=== PATIENT | female | born 1995 | race Caucasian/White ===

== ENCOUNTER 2020-05-02 11:01 | Emergency (ER) | payer SELFPAY ==
[2020-05-02 11:07] VITALS: BP 138/83
[2020-05-02] MEDS ORDERED: NORMAL SALINE 1000 ML 1,000 ML IV ONE (12:27)
[2020-05-02 12:58] LABS: AMORPHOUS SEDIMENT,URINE TRACE /HPF; APPEARANCE,URINE SLIGHTLY-CLOUDY; BILIRUBIN,URINE NEGATIVE (NEGATIVE); COLOR,URINE YELLOW; GLUCOSE, URINE NEGATIVE (NEGATIVE); KETONES,URINE NEGATIVE (NEGATIVE); LEUKOCYTE ESTERASE,URINE NEGATIVE (NEGATIVE); NITRITE,URINE NEGATIVE (NEGATIVE); PROTEIN,URINE NEGATIVE (NEGATIVE); URINE SPECIFIC GRAVITY 1.026; UROBILINOGEN,URINE NEGATIVE mg/dL (<2.0)
[2020-05-02 13:23] LABS: URINE BARBITURATES SCREEN NEGATIVE; URINE BENZODIAZEPINES SCREEN NEGATIVE; URINE COCAINE SCREEN NEGATIVE; URINE MARIJUANA (THC) SCREEN NEGATIVE; URINE METHADONE SCREEN NEGATIVE; URINE PHENCYCLIDINE SCREEN NEGATIVE
[2020-05-02] MEDS ORDERED: ONDANSETRON 4 MG TAB.RAPDIS PO ONE (13:35)
[2020-05-02] MEDS ORDERED: CEFTRIAXONE INJ 250 MG VIAL IM ONE (13:36)
[2020-05-02] MEDS ORDERED: AZITHROMYCIN 250 MG TABLET PO ONE (13:36)
[2020-05-02] MEDS ORDERED: LIDOCAINE 1% INJ-PF (10 MG/ML) 30 ML SDV IM ONE (13:36)
--- NOTE | 2020-05-02 14:09 | ER Document Report ---
ED GI/ - General Chief Complaint: STD Exposure Stated Complaint: NAUSEA,VOMITING Time Seen by Provider: 05/02/20 13:09 Primary Care Provider: WINDY OWUSU MD [ACTIVE STAFF] - Follow up as needed Mode of Arrival: Ambulatory Information source: Patient Notes: 25-year-old female past medical history significant for asthma and a heart murmur presents to the emergency room complaining of urinary urgency general fatigue and a thick white discharge for the past several weeks. 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 She states her and her boyfriend were both diagnosed with nongonococcal urethritis about 6 weeks ago. States she was prescribed medications that she never took. States partner took his medications but is still symptomatic. She denies any other change in partners. TRAVEL OUTSIDE OF THE [place] IN LAST 30 DAYS: No - Related Data Allergies/Adverse Reactions: egg Adverse Reaction (Verified 05/02/20 12:38) Home Medications: control shot Past Medical History - General Information source: Patient - Social History Smoking Status: Never Smoker Frequency of alcohol use: None Drug Abuse: Heroin, Marijuana, Methamphetamine Family History: Reviewed & Not Pertinent Patient has homicidal ideation: No Review of Systems - Review of Systems Constitutional: Malaise Cardiovascular: No symptoms reported Respiratory: No symptoms reported Gastrointestinal: Nausea. denies: Abdominal pain, Diarrhea, Vomiting Genitourinary: Urgency Female Genitourinary: Vaginal discharge Musculoskeletal: No symptoms reported Skin: No symptoms reported Neurological/Psychological: No symptoms reported -: Yes All other systems reviewed and negative Physical Exam - Vital signs Vitals: Temp Pulse Resp BP Pulse Ox 98.0 F 98 14 138/83 H 99 05/02/20 11:06 05/02/20 11:06 05/02/20 11:06 05/02/20 11:06 05/02/20 11:06 - General General appearance: Appears well, Alert In distress: Mild - HEENT Head: Normocephalic, Atraumatic Eyes: Normal Pupils: PERRL - Respiratory Respiratory status: No respiratory distress Chest status: Nontender Breath sounds: Normal Chest palpation: Normal - Cardiovascular Rhythm: Regular Heart sounds: Normal auscultation Murmur: No - Abdominal Inspection: Normal Distension: No distension Bowel sounds: Normal Tenderness: Nontender Organomegaly: No organomegaly - Genitourinary External exam: Normal Speculum exam: Vaginal discharge - Thick white discharge noted. Cervix was closed nonfriable.. No: Cervix closed Vaginal bleeding: None Bimanuel exam: Normal. 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 No: CVA tenderness - Neurological Neuro grossly intact: Yes Cognition: Normal Orientation: AAOx4 [place] Coma Scale Eye Opening: Spontaneous Ginger Coma Scale Verbal: Oriented [place] Coma Scale Motor: Obeys Commands Ginger Coma Scale Total: 15 Speech: Normal Motor strength normal: LUE, RUE, LLE, RLE Sensory: Normal - Skin Skin Temperature: Warm Skin Moisture: Dry Skin Color: Normal Course - Re-evaluation Re-evalutation: 05/02/20 14:24 Patient is resting comfortably no acute distress at this time. She is able to tolerate p.o. fluids. Reviewed urinalysis and wet prep results with patient. Counseled on need to take Flagyl as prescribed. No drinking alcohol while taking the Flagyl for 24 hours after completing. She is aware she will be notified if her gonorrhea and/or chlamydia test are positive patient requested to be treated while waiting for her test results. Recommend an outpatient follow-up with a primary care physician if symptoms are persistent. On-call physician was provided. Take Zofran as needed for nausea. Patient was given strict return to the emergency room guidelines. Return for any new or worsening symptoms. All questions were answered. Patient verbalized understanding and agrees with plan of care. - Vital Signs Vital signs: Temp Pulse Resp BP Pulse Ox 98.0 F 98 14 138/83 H 99 05/02/20 11:06 05/02/20 11:06 05/02/20 11:06 05/02/20 11:06 05/02/20 11:06 Discharge - Discharge Clinical Impression: Nausea, Dysuria, Vaginal discharge, Bacterial vaginosis Condition: Stable Disposition: HOME, SELF-CARE Instructions: Nausea or Vomiting, Nonspecific ([facility]), Vaginosis, Bacterial ([facility]) Additional Instructions: Take Flagyl as prescribed no drinking alcohol while taking Flagyl for 24 hours after completing. Zofran as needed for nausea. Outpatient follow-up with a primary care physician as discussed. You will be notified if your gonorrhea and/or chlamydia test are positive. You have been treated for both gonorrhea and chlamydia in the emergency room. Return for any new or worsening symptoms. Prescriptions: Metronidazole [Flagyl 500 mg Tablet] 500 mg PO BID #14 tablet Ondansetron [Zofran Odt 4 mg Tablet] 1 tab PO Q4H PRN #15 tab.rapdis PRN Reason: For Nausea/Vomiting Referrals: WINDY OWUSU MD [ACTIVE STAFF] - Follow up as needed
[2020-05-02 14:17] LABS: BACTERIA (WET MOUNT) 3+ BACTERIA SEEN; EPITHELIALS (WET MOUNT) 3+ EPITHELIALS SEEN; T.VAGINALIS (WET MOUNT) NO TRICHOMONAS SEEN; WBCS (WET MOUNT) 2+ WBCS SEEN; YEAST (WET MOUNT) NO YEAST SEEN
[2020-05-02 14:35] LABS: CHLAM PCR NOT DETECTED (NOT DETECT)
== END 2020-05-02 14:41 | disposition home or self-care (01) ==
LOC: ER 11:01
DX: N76.0 Acute vaginitis (principal); B96.89 Other specified bacterial agents as the cause of diseases classified elsewhere; R39.15 Urgency of urination; R53.83 Other fatigue; R11.0 Nausea; R30.0 Dysuria; J45.909 Unspecified asthma, uncomplicated; F11.10 Opioid abuse, uncomplicated; F12.10 Cannabis abuse, uncomplicated; F15.10 Other stimulant abuse, uncomplicated; Z79.3 Long term (current) use of hormonal contraceptives
CPT/HCPCS: 99283; 96372; 87210; 81025; 81001; 80307; 87491; 87591; S0119; J3490; J0696